=== PATIENT | male | born 1950 | race Caucasian/White ===

== ENCOUNTER 2019-09-13 06:53 | Inpatient (IN) | payer MEDICARE, OTHER ==
[~2019-09-13] VITALS: Ht 195.6 cm; Wt 130.8 kg
[2019-09-13] MEDS ORDERED: SODIUM CHLORIDE FLUSH 10ML SYR IVF ONE (08:00)
[2019-09-13] MEDS ORDERED: NITROGLYCERIN OINT 2%, 1GM TP ONE ×2 (08:00→08:07)
[2019-09-13] MEDS ORDERED: ASPIRIN 81 MG TABLET CHEW PO ONE (08:00)
[2019-09-13] MEDS ORDERED: ASPIRIN 81 MG TABLET CHEW ONE (08:08)
--- NOTE | 2019-09-13 08:21 | NUR ---
PT RESTING IN [facility] ON MONITOR, PT MEDICATED PER MAR STATES "A LITTLE" PAIN RELIEF. CALL LIGHT WITHIN REACH. LABS AND RAD PENDING.
[2019-09-13 08:30] LABS: BASOPHILS # (AUTO) 0.02 x10^3/uL (0-0.1); BASOPHILS % (AUTO) 0 % (0-1); EOSINOPHILS # (AUTO) 0.01 x10^3/uL (0-0.4); EOSINOPHILS % (AUTO) 0 % (1-7); LYMPHOCYTES % (AUTO) 24 % (22-44); MD NO; MEAN CORPUSCULAR HEMOGLOBIN 29.4 pg (27.5-34.5); MEAN CORPUSCULAR HGB CONC 33.3 g/dL (33.2-36.2); MEAN CORPUSCULAR VOLUME 88.2 fL (81-97); MEAN PLATELET VOLUME 7.4 fL (7.4-10.4); MONOCYTES # (AUTO) 0.46 x10^3/uL (0.2-0.8); MONOCYTES % (AUTO) 7 % (2-9); NEUTROPHILS # (AUTO) 4.99 x10^3/uL (1.8-6.8); NEUTROPHILS % (AUTO) 70 % (42-75); PLATELET COUNT 213 x10^3/uL (130-400); RED BLOOD COUNT 4.81 x10^6/uL (4.38-5.82); RED CELL DISTRIBUTION WIDTH 13.9 % (9.4-14.8)
[2019-09-13 08:32] LABS: ALBUMIN 3.7 g/dL (3.4-5.0); ANION GAP 5 mmol/L (5-15); CALCIUM 9.8 mg/dL (8.5-10.1); CHLORIDE 108 mmol/L (98-107)
[2019-09-13 08:37] LABS: ALANINE AMINOTRANSFERASE 28 U/L (12-78); BILIRUBIN,TOTAL 0.9 mg/dL (0.2-1.0); CREATININE 1.07 mg/dL (0.7-1.3)
[2019-09-13 08:38] LABS: ALKALINE PHOSPHATASE 73 U/L (45-117); TOTAL PROTEIN 6.8 g/dL (6.4-8.2)
[2019-09-13 08:47] LABS: TROPONIN I 0.444 ng/mL (0.000-0.045)
[2019-09-13] MEDS ORDERED: MORPHINE SULFATE 4 MG/ML, 1ML ONE (09:04)
--- NOTE | 2019-09-13 09:09 | NUR ---
MD AT BEDSIDE. BEDSIDE REPORT RECEIVED FROM CARMENZA MCKEON. CARE ASSUMED. PT ON FULL MONITOR.
[2019-09-13] MEDS ORDERED: TAMS-11 PO (09:46)
--- NOTE | 2019-09-13 09:46 | NUR ---
CARDIOLOGY AT BEDSIDE FOR EXAM. MED REC COMPLETED.
--- NOTE | 2019-09-13 10:04 | NUR ---
SM IN ROOM FOR EXAM.
--- NOTE | 2019-09-13 10:20 | NUR ---
REPORT GIVEN TO CARMENZA LEE. PT TO TRANSFER TO INPATIENT STATUS.
[2019-09-13] MEDS ORDERED: LISINOPRIL 10 MG TABLET PO ONE (10:30)
[2019-09-13 10:36] LABS: TROPONIN I 0.624 ng/mL (0.000-0.045)
--- NOTE | 2019-09-13 10:40 | NUR ---
LAB CALLED WITH CRITICAL TROP AT 0.624, MARILEE MIRELES NOTIFIED.
[2019-09-13] MEDS ORDERED: MORPHINE SULFATE 4 MG/ML, 1ML IVPush PRN (11:00)
[2019-09-13 11:33] VITALS: BP 130/70
[2019-09-13] MEDS ORDERED: HEPARIN 25,000 UNITS/500ML PMX 500 ML IV PRN (12:00)
[2019-09-13] MEDS ORDERED: HEPARIN 5,000 UNITS/ML, 1ML IV PRN (12:00)
[2019-09-13] MEDS ORDERED: HEPARIN 5,000 UNITS/ML, 1ML IV ONE (12:00)
[2019-09-13] MEDS ORDERED: BIVALIRUDIN 250 MG ONE (14:57)
[2019-09-13] MEDS ORDERED: FENTANYL PF 100 MCG/2ML ONE (14:57)
[2019-09-13] MEDS ORDERED: LIDOCAINE 2%, 20ML ONE (14:57)
[2019-09-13] MEDS ORDERED: MIDAZOLAM 1 MG/ML, 5ML ONE (14:57)
[2019-09-13] MEDS ORDERED: HEPARIN 1,000 UNITS/ML, 10ML ONE (14:57)
[2019-09-13] MEDS ORDERED: TICAGRELOR 90 MG TABLET ONE (14:57)
[2019-09-13] MEDS ORDERED: VERAPAMIL 2.5 MG/ML, 2ML ONE (14:57)
[2019-09-13] MEDS ORDERED: SODIUM CHLORIDE 0.9% 1,000 ML IV SCH (15:47)
[2019-09-13 20:52] VITALS: BP 120/75
[2019-09-13] MEDS ORDERED: ATORVASTATIN 10 MG TABLET PO SCH (21:00)
[2019-09-14 00:57] VITALS: BP 122/78
[2019-09-14 04:44] LABS: ANION GAP 3 mmol/L (5-15); CALCIUM 8.8 mg/dL (8.5-10.1); CHLORIDE 109 mmol/L (98-107); CREATININE 1.08 mg/dL (0.7-1.3)
[2019-09-14] MEDS ORDERED: ASPIRIN 81 MG TABLET EC PO SCH ×2 (06:00→09:00)
[2019-09-14 06:17] LABS: CHOL/HDL RATIO 3.4; LDL/HDL RATIO 2.2 (0.5-3.0)
[2019-09-14 08:40] VITALS: BP 116/72
[2019-09-14] MEDS ORDERED: TAMSULOSIN 0.4 MG CAP.ER.24H PO SCH (09:00)
[2019-09-14] MEDS ORDERED: ATOR10TA9 PO (12:16)
[2019-09-14] MEDS ORDERED: ASPI81TA45 PO (12:16)
== END 2019-09-14 14:22 | disposition home or self-care (01) | DRG 282 ==
LOC: ED 09:20 → EDIP 09:30 → 5SO 11:29 → DCLOUNGE 09-14 14:12
PROVIDERS: ADMIT Internal Medicine; ATTEND Internal Medicine
PROC: 4A023N7 Measurement of Cardiac Sampling and Pressure, Left Heart, Percutaneous Approach (ICD-10-PCS; principal; 2019-09-13)
PROC: B211YZZ Fluoroscopy of Multiple Coronary Arteries using Other Contrast (ICD-10-PCS; 2019-09-13)
PROC: B215YZZ Fluoroscopy of Left Heart using Other Contrast (ICD-10-PCS; 2019-09-13)
DX: I21.4 Non-ST elevation (NSTEMI) myocardial infarction (principal); I25.119 Atherosclerotic heart disease of native coronary artery with unspecified angina pectoris; I45.10 Unspecified right bundle-branch block; Z82.49 Family history of ischemic heart disease and other diseases of the circulatory system; N40.0 Benign prostatic hyperplasia without lower urinary tract symptoms; Z87.891 Personal history of nicotine dependence
CPT/HCPCS: 36415; 71045; 80048; 80053; 80061; 84145; 84484; 85025; 85520; 93005; 93306; 93458; 99156; 99285; C1769; C1894; G0378; J0583; J1644; J2250; J3010; J2270; Q9967

== ENCOUNTER → 2019-11-22 | Outpatient (CLI) | payer MEDICARE ==
[~2019-11-22] MED LIST: ASPI81TA45 PO; ATOR10TA9 PO; TAMS-11 PO
== END | disposition home or self-care (01) ==
LOC: CVU 15:30
PROVIDERS: ATTEND Internal Medicine Cardiovascular Disease
DX: I65.23 Occlusion and stenosis of bilateral carotid arteries (principal); R09.89 Other specified symptoms and signs involving the circulatory and respiratory systems; I10 Essential (primary) hypertension; E78.5 Hyperlipidemia, unspecified; I25.2 Old myocardial infarction
CPT/HCPCS: 93880